=== PATIENT | female | born 1935 | race Caucasian/White ===

== ENCOUNTER → 2017-12-22 15:30 | Outpatient (CLI) | payer MEDICARE, SELFPAY ==
--- NOTE | 2017-12-22 | LES_PTH ---
PATIENT: SHERI FIERRO LOC: POL[facility] U#:[id number] AGE/SX: 89/F ROOM: RE12/22/[address]: Dr. Maikel De La Cruz MD : [id number] BED: DIS: SPEC #: [id number] RECD: 12/23/17 13:24 STATUS: KIMMY LAI #: [id number] GABBY: 12/22/17 00:[address]: Maikel De La Cruz Chi DEPT: SURGICAL PATHOLOGY RECD BY: Nikita Garcia Tissues: A - Skin of hand and finger, NOS B - Skin of hand and finger, NOS Procedures: Surgery Specimen Level IV HEADER OPERATION: Left hand skin biopsy PRE-OP DIAGNOSIS: Left hand lesion TISSUE SUBMITTED: A - Left hand left side, B - Left hand right side MICROSCOPIC DIAGNOSIS A. Skin lesion, left hand, left side, shave biopsy: Inflamed atypical squamous epithelial lesion with moderate to severe atypia. See comment. B. Skin lesion, left hand, right side, shave biopsy: Actinic keratosis, hypertrophic type with verrucous features. Negative for malignancy. SJ:marylu 12/24/17 COMMENT A. The lesion is present at the deep resection margin of the specimen. Invasive carcinoma cannot be entirely ruled out. Clinical correlation and appropriate follow up are necessary, excision of the lesion is suggested if clinically indicated. Case has been reviewed in consultation with Dr. Yenug who concurs with the above diagnosis. IDC:AM MICROSCOPIC DESCRIPTION Slides are reviewed. GROSS DESCRIPTION A - Received in fixative is one container labeled with the patient's name and designated left hand left side. The specimen consists of a round piece of chand-white skin measuring 0.6 x 0.6 x 0.2 cm. The specimen is inked and submitted entirely in one cassette. It will be serially sectioned at the time of embedding. B - Received in fixative is one container labeled with the patient's name and designated left hand right side. The specimen consists of a piece of chand-white skin measuring 0.5 x 0.5 x 0.2 cm. A chand nodule is noted on the surface measuring 0.4 cm in greatest dimension. The specimen is inked and submitted entirely in one cassette. It will be bisected at the time of embedding. / ASUNCION:marylu 12/23/17 TC:5 CPT: 42795 x2
== END ==
PROVIDERS: Family Provider Family Medicine Geriatric Medicine; PCP Family Medicine Geriatric Medicine; Visit Provider Family Medicine Geriatric Medicine
DX: L98.9 Disorder of the skin and subcutaneous tissue, unspecified (principal)
CPT/HCPCS: 87070; 87205; 88305

== ENCOUNTER → 2018-06-03 14:50 | Outpatient (CLI) | payer MEDICARE, SELFPAY ==
[2016-06-10 06:25] VITALS: BMI 32.2
== END ==
PROVIDERS: Family Provider Family Medicine Geriatric Medicine; PCP Family Medicine Geriatric Medicine; Referring Provider Family Medicine Geriatric Medicine; Visit Provider Family Medicine Geriatric Medicine
DX: R68.83 Chills (without fever) (principal)
CPT/HCPCS: 87633

== ENCOUNTER → 2018-06-08 12:13 | Outpatient (CLI) | payer MEDICARE, SELFPAY ==
--- NOTE | 2018-06-08 12:15 | CT_ITS ---
STUDY: CT CHEST WITHOUT CONTRAST REASON FOR EXAM: Female, 83 years old. History of a lung nodule. RADIATION DOSAGE (If Supplied By Facility): CTDIvol = ( 13.20 ) mGy, DLP = ( 484.97 ) mGycm TECHNIQUE: Transaxial imaging was performed without the administration of intravenous contrast material. Multiplanar coronal and sagittal images were reformatted. Individualized dose optimization techniques were used for this CT. COMPARISON: None. FINDINGS: There is a 1.7 cm x 1 cm hypodense nodule in the lower midportion of the right lobe of the thyroid. A inhomogeneous hypodense nodule is also seen in the inferior aspect of the left lobe of the thyroid. This extends into the substernal region. Correlation with ultrasound of the thyroid gland is recommended for further evaluation. Minimal increased markings in the posterior medial segment of the right lower lobe with areas of bone bronchiectasis. This is in keeping with scarring. No pulmonary nodule is seen. There is no demonstrated pleural abnormality. Normal heart and pericardium. There are multiple small lymph nodes within the mediastinum, which are normal in size and morphology most compatible with reactive lymph hyperplasia. Normal hilar regions. Normal unenhanced pulmonary arteries. There is atherosclerotic calcification of the aortic arch . There are multi-level degenerative changes of the thoracic spine. Small hiatal hernia. CT/Chest WITH Contrast IMPRESSION: Findings suggestive of mild degree of scarring and bronchiectasis in the posterior medial segment of the right lower lobe. No pulmonary nodule is seen. Electronically Signed: Matthew Jolly, at 12:54 EDT , Service support ,
[2018-06-08 12:41] LABS: CREATININE FINGERSTICK 1.3 mg/dL (0.55-1.02)
== END ==
PROVIDERS: Family Provider Family Medicine Geriatric Medicine; PCP Family Medicine Geriatric Medicine; Referring Provider Family Medicine Geriatric Medicine; Visit Provider Family Medicine Geriatric Medicine
DX: R91.1 Solitary pulmonary nodule (principal)
CPT/HCPCS: 71260

== ENCOUNTER 2021-04-15 17:16 | Observation (INO) | payer MEDICARE, SELFPAY ==
[2021-04-15] VITALS (16 sets, daily range): BP systolic 119–149; BP diastolic 74–118; PULSE 81–152; RESP 16–24; TEMP 36.2–37.9; O2SAT 91–100; BMI 30.3; BMI 30.4
--- NOTE | 2021-04-15 17:20 | EKG12_ITS ---
Test Reason : REPEAT CP Blood Pressure : / mmHG Vent. Rate : 102 BPM Atrial Rate : 105 BPM P-R Int : 000 ms QRS Dur : 080 ms QT Int : 300 ms P-R-T Axes : 000 007 017 degrees QTc Int : 391 ms Atrial fibrillation Low voltage QRS Nonspecific ST and T wave abnormality Abnormal ECG Confirmed by RAZA SALAZAR, JIMMY ([id number]), publication editor DOMINICK QUIÑONES ([id number]) on 04/17/2021 11:44:44 AM Referred By: VARUN Confirmed By:JIMMY PERSON MD
--- NOTE | 2021-04-15 17:37 | RAD_ITS ---
STUDY: X-RAY CHEST REASON FOR EXAM: Female, 85 years old. SOB, NEW ONSET A-FIB TWO WEEKS AGO. chest pain TECHNIQUE: XR Chest 1 View COMPARISON: Prior comparison studies are not available for review at this time. FINDINGS: There is no demonstrated pleural abnormality. Normal size heart. Normal mediastinum and kathy. Normal visualized pulmonary arteries. There is atherosclerotic calcification of the aortic arch with tortuosity. There are diffuse degenerative changes of the visualized thoracic spine. There is degenerative osteoarthritis of the bilateral shoulders. There is no demonstrated abnormality of the visualized soft tissue structures of the upper abdomen. RAD/Chest 1 View (Portable) IMPRESSION: There has been no change in the appearance of the chest since the prior study. Electronically Signed: Eugene Pacheco MD at 18:03 [facility] ,
--- NOTE | 2021-04-15 17:37 | ED.VIS.CHEST ---
HPI History of Present Illness Chief Complaint: Chest Pain Informant: patient Onset/Context/Timing Onset: Yesterday Timing: Continuous Quality: Positive for Pressure and Tightness Location: Substernal Current Severity: Mild Maximum Severity: Moderate Narrative Narrative: Patient presents secondary to chest pressure that started yesterday. Patient describes a pressure-like sensation that waxes and wanes. She has occasional shortness of breath. She was diagnosed approximately 2 weeks ago with atrial fibrillation. She was placed on Eliquis and metoprolol. She was also started on thyroid medication for hyperthyroidism at that time. She believes her last stress test was several years ago. [facility] Medical History Atrial fibrillation Hyperthyroidism Home Medications amlodipine 5 mg PO DAILY 05/13/16 [History Last Taken 06/10/16 05:00] losartan 50 mg PO DAILY 05/13/16 [History Last Taken 06/10/16 05:00] Allergy/AdvReac Type Severity Reaction Status Date / Time celecoxib [From Celebrex] Allergy Rash Verified 05/13/16 14:11 piroxicam [From Feldene] Allergy Swelling Verified 05/13/16 14:11 Sulfa (Sulfonamide Allergy Rash Verified 05/13/16 14:11 Antibiotics) Social History Smoking Status: Never smoker ROS ROS ED Constitutional Constitutional ED: Denies chills or fever(s) Eyes Eyes: Denies change in vision ENT ENT ED: Denies sore throat Cardiovascular Cardiovascular: Reports chest pain Respiratory/Chest Respiratory/Chest: Reports cough and dyspnea Gastrointestinal Gastrointestinal: Denies abdominal pain, diarrhea, nausea or vomiting Genitourinary Genitourinary ED: Denies dysuria Musculoskeletal Musculoskeletal: Denies back pain or neck pain Integumentary Denies rash Neurologic Neurologic: Denies headache(s) or weakness Allergic/Immunologic Allergic/Immunologic ED: Denies urticaria EXAM Physical Exam Const Vital Signs: 04/15/21 17:18 04/15/21 17:21 04/15/21 17:30 Temperature 97.1 F L 97.1 F L Temperature Source Temporal Temporal Pulse Rate 141 H 152 H Respiratory Rate 18 22 H Respiratory Effort Normal Non-Labored Blood Pressure 139/115 H 139/115 H Blood Pressure Mean 123 123 Pulse Ox 97 98 Oxygen Delivery Method Room Air Room Air Room Air 04/15/21 18:28 Temperature Temperature Source Pulse Rate 128 H Respiratory Rate 18 Respiratory Effort Blood Pressure 130/105 H Blood Pressure Mean 113 Pulse Ox 98 Oxygen Delivery Method Room Air Positive well nourished and well developed General Appearance ED: well developed HEENT normocephalic and atraumatic Eyes PERRL and EOMs intact bilaterally Neck supple Chest Wall inspection of chest normal and palpation of chest normal Resp normal respiratory effort and clear to auscultation bilaterally Cardio Rate: tachycardic Rhythm: abnormal rhythm irregularly irregular GI soft to palpation and non-tender Extremity normal to inspection Neuro oriented x3 Sensorium / Orientation: awake and alert Psych mental status grossly normal Skin no rashes or lesions noted MDM MDM MDM Narrative Medical decision making narrative: EKG, chest x-ray, lab work obtained. Patient ordered 10 mg of IV Cardizem. Lab Data Attestation: I reviewed the patient's lab results. Labs: Laboratory Results - last 24 hr 04/15/21 04/15/21 04/15/21 17:32 17:32 17:32 WBC 8.3 RBC 3.95 L Hgb 13.1 Hct 37.7 MCV 95.4 MCH 33.2 H MCHC 34.7 RDW Std Deviation 47.5 H RDW Coeff of Sari 13.5 Plt Count 141 L MPV 10.4 Immature Gran % (Auto) 4.800 H Neut % (Auto) 70.5 H Lymph % (Auto) 14.2 L Glasscock % (Auto) 10.2 H Eos % (Auto) 0.2 Baso % (Auto) 0.1 Absolute Neuts (auto) 5.8 Absolute Lymphs (auto) 1.17 Nucleated RBC % 0 PT 17.5 H INR 1.5 Sodium 141 Potassium 3.7 Chloride 109 H Carbon Dioxide 27.0 Anion Gap 5 BUN 20 H Creatinine 1.01 Estim Creat Clear Calc 35.17 Est GFR (MDRD) Af Amer 67 Est GFR (MDRD) Non-Af 55 L BUN/Creatinine Ratio 19.8 Glucose 110 H Calcium 8.4 L Troponin I High Sens 5 TSH 04/15/21 17:32 WBC RBC Hgb Hct MCV MCH MCHC RDW Std Deviation RDW Coeff of Sari Plt Count MPV Immature Gran % (Auto) Neut % (Auto) Lymph % (Auto) Glasscock % (Auto) Eos % (Auto) Baso % (Auto) Absolute Neuts (auto) Absolute Lymphs (auto) Nucleated RBC % PT INR Sodium Potassium Chloride Carbon Dioxide Anion Gap BUN Creatinine Estim Creat Clear Calc Est GFR (MDRD) Af Amer Est GFR (MDRD) Non-Af BUN/Creatinine Ratio Glucose Calcium Troponin I High Sens TSH 0.40 Radiography Chest X-Ray - ED: 1 View, Read by ED Physician and Chronic Changes Diagnostic Testing: Clinical Impression(s) from Imaging Studies Chest X-Ray 04/15/21 17:37 IMPRESSION: There has been no change in the appearance of the chest since the prior study. Electronically Signed: Eugene Pacheco MD at 18:03 EST , EKG Initial EKG: Attestation: I personally reviewed and interpreted this EKG as follows: Interpretation: Atrial Fibrillation (A. fib at 145. Nonspecific T wave flattening. No acute ST change.) Follow-up EKG: Attestation: I personally reviewed and interpreted this EKG as follows: Interpretation: Atrial Fibrillation (A. fib at 102. No acute ST change noted) Treatment and Re-Evaluation Comments:: Test results discussed with patient. At this time lab work largely unremarkable with a normal troponin of 5. TSH is normal. Patient did develop some nausea and was given a dose of Zofran. Due to repeated chest pressure repeat EKG was obtained and shows no ischemia. Patient be discussed with hospitalist regarding admission for definitive rate control and cardiac rule out. Discharge Plan Triage Chief Complaint: Chest Pain ED Provider: Jenny Gonsalves Dx/Rx/DC Orders Clinical Impression: Chest pain, Atrial fibrillation with rapid ventricular response Prescriptions: No Action losartan 50 MG tablet 50 mg PO DAILY RF: 0 amlodipine 5 MG tablet 5 mg PO DAILY RF: 0 Primary Care Provider: Igor Dominguez Referrals: Igor Dominguez DO [Primary Care Provider] - Disposition Disposition: Acute Care Hospital [facility]
[2021-04-15 17:46] LABS: Absolute Lymphocyte Count 1.17 X10^3/uL (0.83-4.51); Absolute Neutrophil Count 5.8 X10^3/uL (2.0-7.7); Basophil# 0.01 X10^3/uL; Basophil% 0.1 % (0-1); Eosinophil# 0.02 X10^3/uL; Eosinophils% 0.2 % (0-5); Hematocrit 37.7 % (37-47); Hemoglobin 13.1 g/dL (12.0-15.0); Lymphocyte # 1.17 X10^3/ul (0.83-4.51); Lymphocyte % 14.2 % (19-41); Mean Corp Hgb Conc 34.7 g/dL (32-36); Mean Corpuscular Hgb 33.2 pg (27.0-32.0); Mean Corpuscular Volume 95.4 fL (81-99); Mean Platelet Vol. 10.4 fl (6.2-12.0); Monocyte# 0.84 X10^3/uL; Monocyte% 10.2 % (0-10); NRBC Flagged by Analyzer 0 % (0-5); Neutrophil # 5.82 X10^3/uL (2.7-7.7); Neutrophil % 70.5 % (47-70); Platelet Count 141 K/mm3 (150-450); RBC Distribution Width CV 13.5 % (11.6-14.6); RBC Distribution Width SD 47.5 fl (35.1-43.9); Red Blood Count 3.95 M/mm3 (4.2-5.4); White Blood Count 8.3 K/mm3 (4.4-11.0)
[2021-04-15 17:58] LABS: Anion Gap 5 (5-15); BUN 20 mg/dL (7-18); BUN/Creat Ratio 19.8 RATIO (10-20); Calcium,Total 8.4 mg/dL (8.5-10.1); Chloride 109 mmol/L (98-107); Creatinine, Serum 1.01 mg/dL (0.55-1.02); EST Glomerular Filtration Rate 55 mL/min (>60); Est Glom Filt Rate - Afr Amer 67 mL/min (>60); Estimated Creatinine Clearance 35.17 ml/min; Glucose 110 mg/dL (74-106); Potassium 3.7 mmol/L (3.5-5.1); Sodium Level 141 mmol/L (136-145); Troponin-I HS 5 pg/mL (3.0-54.0)
[2021-04-15 18:17] LABS: International Normalized Ratio 1.5; Prothrombin Time (Protime)PT. 17.5 SECONDS (11.7-14.9)
[2021-04-15] MEDS: 0.9% Normal Saline 1,000 ML 150 ML IV (18:33)
[2021-04-15] MEDS: dilTIAZem 25 MG/5 ML Vial 10 MG IV BOLUS (18:33)
--- NOTE | 2021-04-15 18:47 | EKG12_ITS ---
Test Reason : CP Blood Pressure : / mmHG Vent. Rate : 145 BPM Atrial Rate : 141 BPM P-R Int : 000 ms QRS Dur : 076 ms QT Int : 316 ms P-R-T Axes : 000 -10 -56 degrees QTc Int : 490 ms Atrial fibrillation Low voltage QRS Nonspecific ST and T wave abnormality Abnormal ECG Confirmed by RAZA SALAZAR, JIMMY ([id number]), design editor DOMINICK QUIÑONES ([id number]) on 04/17/2021 11:44:59 AM Referred By: Confirmed By:JIMMY PERSON MD
[2021-04-15] MEDS: Ondansetron 4 MG/2 ML Vial IV (18:58)
[2021-04-15] MEDS: Aspirin 81 MG TAB.CHEW 324 MG PO (19:18)
[2021-04-15 20:26] LABS: Troponin-I HS 6 pg/mL (3.0-54.0)
--- NOTE | 2021-04-15 21:00 | EKG12_ITS ---
Test Reason : CP ADMIT Blood Pressure : / mmHG Vent. Rate : 103 BPM Atrial Rate : 113 BPM P-R Int : 000 ms QRS Dur : 078 ms QT Int : 264 ms P-R-T Axes : 000 -02 258 degrees QTc Int : 345 ms Atrial fibrillation Low voltage QRS Nonspecific ST and T wave abnormality Abnormal ECG Confirmed by RAZA SALAZAR, JIMMY ([id number]), video tape editor DOMINICK QUIÑONES ([id number]) on 04/17/2021 12:45:17 PM Referred By: MELISA Confirmed By:JIMMY PERSON MD
--- NOTE | 2021-04-15 21:14 | PCM.HP.STD ---
[facility] - General General Date of Admission: 04/15/21 Date of Service: 04/15/21 Chief Complaint: Chest pressure since yesterday night, on 04/14/2021. Recent diagnosis of A. fib 2 weeks ago HPI Narrative SHERI FIERRO, is a 85 F with history of recent diagnosis of A. fib 2 weeks ago, diagnosed by PCP and started on metoprolol and apixaban 5 mg twice daily came to ED when she started having chest pain last night on 04/14. She further described she had left-sided chest pressure felt like elephant sitting on the chest, about 4-6/10 intensity with radiation to intrascapular space. Patient did not feel well last night and could not sleep. She further went for exercise when she had not gone for last 3 weeks but usually had had 3 times a week. Her chest pain further got worse during the day that made her to come to ED. She denies palpitation, pounding sensation in the chest. She has occasional shortness of breath during the chest pain. She also felt dizzy and lightheaded but denies syncope. She had a stress test done several years ago. She noted an echo. She does not have diagnosis of coronary artery disease, heart failure or valvular disease. She has never smoked does not have COPD/emphysema. She has history of hypothyroidism and is on methimazole. In ED, first EKG shows A. fib 140 bpm, QTC 490 ms. She had 10 mg of IV Cardizem bolus which slowed her heart rate 202/min on repeat EKG. Labs reviewed. TSH 0.4. First isolated troponin normal. K3.7. Chest x-ray individually reviewed does not show any new acute change. PFSH Medical History Atrial fibrillation Cancer GERD (gastroesophageal reflux disease) Hypertension Hyperthyroidism Non-smoker Home Medications losartan 50 mg PO DAILY 05/13/16 [History Last Taken 06/10/16 05:00] apixaban [Eliquis] 5 mg PO BID 04/15/21 [History Last Taken Unknown] methimazole 10 mg PO DAILY 04/15/21 [History Last Taken Unknown] metoprolol tartrate 25 mg PO BID 04/15/21 [History Last Taken Unknown] Allergy/AdvReac Type Severity Reaction Status Date / Time celecoxib [From Celebrex] Allergy Rash Verified 05/13/16 14:11 piroxicam [From Feldene] Allergy Swelling Verified 05/13/16 14:11 Sulfa (Sulfonamide Allergy Rash Verified 05/13/16 14:11 Antibiotics) Surgical History (Updated 04/15/21 @ 19:56 by Lara Whitmna) History of appendectomy Social History Smoking Status: Never smoker ROS ROS Narrative Constitutional: Reports fatigue and weakness. Mild low-grade fever 100.2 Fahrenheit in ED. HEENT: Reports systems reviewed and no addt'l complaints, except as documented Respiratory/Chest: As mentioned in HPI Gastrointestinal: Denies coffee ground emesis, hematemesis or vomiting Genitourinary: Denies burning urination or new urinary tract symptoms Musculoskeletal: Denies joint pain and limited range of motion Neurologic: Denies seizure-like activity skin: No ulcer. No rash Endocrinology: Reports systems reviewed and no addt'l complaints, except as documented Hematologic/Lymphatic: Reports systems reviewed and no addt'l complaints, except as documented Rest 14 ROS are negative except as mentioned in HPI Vital Signs Vital Signs Vital Signs: 04/15/21 17:18 04/15/21 17:21 04/15/21 17:30 Temperature 97.1 F L 97.1 F L Temperature Source Temporal Temporal Pulse Rate 141 H 152 H Respiratory Rate 18 22 H Respiratory Effort Normal Non-Labored Blood Pressure 139/115 H 139/115 H Blood Pressure Mean 123 123 Blood Pressure Source Blood Pressure Position Blood Pressure Location Pulse Ox 97 98 Oxygen Delivery Method Room Air Room Air Room Air 04/15/21 18:28 04/15/21 19:00 04/15/21 20:40 Temperature 97.9 F Temperature Source Temporal Pulse Rate 128 H 96 108 H Respiratory Rate 18 18 21 H Respiratory Effort Blood Pressure 130/105 H 139/103 H 127/88 H Blood Pressure Mean 113 115 101 Blood Pressure Source Blood Pressure Position Blood Pressure Location Pulse Ox 98 96 97 Oxygen Delivery Method Room Air Room Air Room Air 04/15/21 20:53 Temperature 100.2 F H Temperature Source Oral Pulse Rate 139 H Respiratory Rate 16 Respiratory Effort Blood Pressure 147/118 H Blood Pressure Mean 127 Blood Pressure Source Monitor Blood Pressure Position Supine Blood Pressure Location Right Arm Pulse Ox 95 Oxygen Delivery Method Room Air Weight Weight: 177 lb 0.499 oz Body Mass Index (BMI) 30.4 Physical Exam Narrative General: Alert, Oriented x3, Cooperative HEENT: Atraumatic, PERRLA, EOMI, Normocephalic Oral: Oral mucosa moist. No Gingival or Mucosal Lesions/ Ulcerations Neck: Supple, No JVD, Negative Carotid Bruits Lungs: Air entry diminished in bilateral lung bases. No crepitation/rhonchi Cardiovascular: Irregular rate and rhythm, A. fib RVR. Normal S1, Normal S2, No murmurs Abdomen: Bowel Sounds Present, Soft, Non Tender, Non-Distended : No renal angle tenderness. No suprapubic tenderness. Extremities: Mild bilateral pitting ankle edema, Capillary Refill Less than 3 Seconds Skin: No rashes, No breakdown Musculoskeletal: No Tenderness to Palpation of Joints or Extremities. ROM full. Neurological: Cranial nerves II-XII grossly intact, DTR 2+/4 and Symmetrical, Neuro grossly intact Psych/Mental Status: Normal Affect, Appropriate. Results Lab / Micro Data Result Diagrams: 04/15/21 17:32 04/15/21 17:32 Labs: Laboratory Results - last 24 hr 04/15/21 17:32: WBC 8.3, RBC 3.95 L, Hgb 13.1, Hct 37.7, MCV 95.4, MCH 33.2 H, MCHC 34.7, RDW Std Deviation 47.5 H, RDW Coeff of Sari 13.5, Plt Count 141 L, MPV 10.4, Immature Gran % (Auto) 4.800 H, Neut % (Auto) 70.5 H, Lymph % (Auto) 14.2 L, Guadalupe % (Auto) 10.2 H, Eos % (Auto) 0.2, Baso % (Auto) 0.1, Absolute Neuts (auto) 5.8, Absolute Lymphs (auto) 1.17, Nucleated RBC % 0 04/15/21 17:32: PT 17.5 H, INR 1.5 04/15/21 17:32: Sodium 141, Potassium 3.7, Chloride 109 H, Carbon Dioxide 27.0, Anion Gap 5, BUN 20 H, Creatinine 1.01, Estim Creat Clear Calc 35.17, Est GFR (MDRD) Af Amer 67, Est GFR (MDRD) Non-Af 55 L, BUN/Creatinine Ratio 19.8, Glucose 110 H, Calcium 8.4 L, Troponin I High Sens 5 04/15/21 17:32: TSH 0.40 04/15/21 19:30: Troponin I High Sens 6 Micro: Microbiology 04/15/21 17:29 Nasal Secretion SARS-CoV-2 Antigen (Rapid) - Final Radiology Impression Chest X-Ray 04/15/21 17:37 IMPRESSION: There has been no change in the appearance of the chest since the prior study. Electronically Signed: Eugene Pacheco MD at 18:03 EST , Assessment & Plan Assessment/Plan (1) Atrial fibrillation with rapid ventricular response: (2) Chest pain: PLAN: 1. A. fib with RVR possible due to hyperthyroidism, ACS needs to be ruled out: Patient is being admitted in PCU. Patient is still heart rate fluctuates in 110s. Cardizem 15 mg IV bolus and infusion drip 5 mg/h ordered with up titration. Continue metoprolol and apixaban. Discussed with the nursing staff. 2D echo ordered. TSH and free T4 ordered for tomorrow a.m. Patient had outpatient cartography professor appointment on 04/18, Dr. Belcher but wants to follow cartography professor as an outpatient here. 2. Atypical chest pain, rule out ACS: SRAVANTHI risk score is 2. Low risk. Serial troponin enzymes. First-troponin negative. Patient cannot have stress test now because of A. fib with RVR which is already a stressor for chest pain. Patient can have nuclear myocardial perfusion stress test as an outpatient. If serial troponin shows upward trend, consult cardiology for possible cardiac cath. Fasting profile tomorrow a.m. We will try to manage the risk factors hypertension hypothyroidism. 3. Hypertension: Patient on losartan as an outpatient discontinued with holding parameter. Blood pressure is slightly elevated. 4. Hyperthyroidism: Patient home dose of methimazole continued. TSH and free T4 tomorrow a.m. VT prophylaxis: Patient already on apixaban. Living will/advanced directive/end of life care: Patient does have living will or advanced directive. His daughter and son are power of trust and estates attorney for health but she prefers daughter to be the first person to contact. After discussion of benefits/risks procedures involved with full code, DNR CC arrest and DNR CC, the patient opted for full code. If patient found a reversible cause or terminal 1 does not improve in few days, would like to withdraw the life support measures. Patient initially does want artificial life support including intubation, tube feed, ventilator and/chest compression, central venous catheter, vasopressor and DC shock if needed Total time spent in [id number] encounter in discussion of advanced directive 16 minutes. Charges/Coding Visit Charges OBSV E&M: 83301 Initial observation care L3 Procedures Hospitalists Procedures: [id number] Advncd Care Plan 30 Min
[2021-04-15] MEDS: dilTIAZem 25 MG/5 ML Vial 15 MG IV BOLUS (21:57)
[2021-04-15] MEDS: Metoprolol Tartrate 25 MG Tablet PO (22:05)
[2021-04-15] MEDS: APIXABAN 5 MG TABLET PO (22:05)
[2021-04-16] VITALS (17 sets, daily range): BP systolic 97–114; BP diastolic 53–86; PULSE 62–101; RESP 15–21; TEMP 36.1–37.2; O2SAT 94–98
[2021-04-16 00:43] LABS: Troponin-I HS 6 pg/mL (3.0-54.0)
--- NOTE | 2021-04-16 05:55 | ECHOD_ITS ---
Reason For Study: AFIB Procedure This was a 2D Doppler, Color Flow transthoracic echocardiogram. The exam was of adequate technical quality. Exam performed portable in patient room. Left Ventricle Normal LV size. Left ventricular systolic function is normal. The estimated ejection fraction is 60 %. Unable to assess diastolic dysfunction. No regional wall motion abnormalities noted. Right Ventricle Normal RV size. Normal systolic function. Atria The left atrium is severely enlarged. The right atrium is severely enlarged. No doppler evidence for ASD. Mitral Valve There is mild mitral annular calcification. Mild diffuse mitral valve thickening. Mild-Moderate (1- 2+) mitral valve insufficiency. Tricuspid Valve Normal tricuspid valve. Moderately severe (3+) eccentric tricuspid valve insufficiency. Right ventricular systolic pressure estimated to be 35 mmHg. Aortic Valve Trisinus/trileaflet aortic valve. Mild diffuse aortic valve thickening. Mild focal aortic valve calcification. Pulmonic Valve The pulmonic valve is not well visualized. Great Vessels Mildly dilated aortic root. Pericardium/Pleural No pericardial effusion. MMode/2D Measurements & Calculations LVIDd: 4.6 cm IVSd: 1.1 cm Ao root diam: 4.2 cm LVIDs: 3.3 cm LVPWd: 0.95 cm RVDd: 3.0 cm FS: 27.6 % LAV(MOD-bp): 71.7 ml LA A4 area: 23.9 cm2 LA dimension(2D): 3.6 cm LAV(MOD-bp) Indexed: 38.6 ml/m2 LAV(MOD-sp2): 76.3 ml LAV(MOD-sp4): 66.8 ml RA A4 area: 25.1 cm2 Doppler Measurements & Calculations MV E max jori: 100.8 cm/sec Ao V2 max: 111.7 cm/sec LV V1 max: 80.6 cm/sec Ao max P.0 mmHg LV V1 max P.6 mmHg PA V2 max: 72.0 cm/sec TR max jori: 220.6 cm/sec TR max P.5 mmHg ECHO/Echo Complete Interpretation Summary Left ventricular systolic function is normal. The estimated ejection fraction is 60 %. The left atrium is severely enlarged. The right atrium is severely enlarged. There is mild mitral annular calcification. Mild diffuse mitral valve thickening. Mild-Moderate (1-2+) mitral valve insufficiency. Moderately severe (3+) eccentric tricuspid valve insufficiency. Mild diffuse aortic valve thickening. Mild focal aortic valve calcification. Mildly dilated aortic root. Right ventricular systolic pressure estimated to be 35 mmHg. Unable to assess diastolic dysfunction. Ordering Physician: Javid Torres Referring Physician: HEMA DICKERSON Performed By: Amber Smyth, RDCS, RVT
[2021-04-16 06:19] LABS: Absolute Lymphocyte Count 1.51 X10^3/uL (0.83-4.51); Absolute Neutrophil Count 3.4 X10^3/uL (2.0-7.7); Basophil# 0.01 X10^3/uL; Basophil% 0.2 % (0-1); Eosinophil# 0.07 X10^3/uL; Eosinophils% 1.1 % (0-5); Hematocrit 34.8 % (37-47); Hemoglobin 11.8 g/dL (12.0-15.0); Lymphocyte # 1.51 X10^3/ul (0.83-4.51); Mean Corp Hgb Conc 33.9 g/dL (32-36); Mean Corpuscular Hgb 33.2 pg (27.0-32.0); Mean Platelet Vol. 10.5 fl (6.2-12.0); Monocyte# 1.25 X10^3/uL; Monocyte% 19.9 % (0-10); NRBC Flagged by Analyzer 0 % (0-5); Neutrophil # 3.36 X10^3/uL (2.7-7.7); Neutrophil % 53.4 % (47-70); Platelet Count 117 K/mm3 (150-450); RBC Distribution Width CV 13.5 % (11.6-14.6); RBC Distribution Width SD 49.1 fl (35.1-43.9); Red Blood Count 3.55 M/mm3 (4.2-5.4); White Blood Count 6.3 K/mm3 (4.4-11.0)
[2021-04-16 07:16] LABS: Anion Gap 7 (5-15); BUN 18 mg/dL (7-18); BUN/Creat Ratio 21.2 RATIO (10-20); Calcium,Total 7.4 mg/dL (8.5-10.1); Chloride 108 mmol/L (98-107); Cholesterol 128 mg/dL (200); Creatinine, Serum 0.85 mg/dL (0.55-1.02); EST Glomerular Filtration Rate 67 mL/min (>60); Est Glom Filt Rate - Afr Amer 82 mL/min (>60); Estimated Creatinine Clearance 41.78 ml/min; Glucose 89 mg/dL (74-106); High Density Lipoprotein 62 mg/dL; Potassium 3.1 mmol/L (3.5-5.1); Sodium Level 140 mmol/L (136-145); T4 Free Direct 0.96 ng/dL (0.76-1.46); Thyroid Stim Hormone (TSH) 0.46 uIU/mL (0.358-3.74); Triglycerides 74 mg/dL; Very Low Density Lipoprotein 15 mg/dL (5-40)
[2021-04-16] MEDS: Metoprolol Tartrate 50 MG Tablet PO (08:14)
[2021-04-16] MEDS: APIXABAN 5 MG TABLET PO (08:16)
[2021-04-16] MEDS: Potassium Chloride Oral Tablet 20 MEQ 40 MEQ PO (08:38)
[2021-04-16] MEDS: METHIMAZOLE 5 MG TABLET 10 MG PO (09:29)
[2021-04-16 11:26] LABS: Magnesium 2.2 mg/dL (1.6-2.6)
[2021-04-16] MEDS: Ondansetron 4 MG/2 ML Vial IV (11:28)
[2021-04-16] MEDS: 0.9% Saline Lock 10 ML Syringe IV (11:28)
--- NOTE | 2021-04-16 12:28 | PCM.DC ---
Discharge Instructions Diet Discharge Diet: Low fat / Low cholesterol Activity Discharge Activity: Return to Normal Activity Dressing / Incision Call your doctor if you observe: Shortness of breath, Dizziness, Chest pain and Increased palpitations (irregular heartbeat) Follow Up Care Test Results: Test results from this visit will be discussed in further detail at your follow-up appointment, if applicable. Discharge Plan Admission Admit Date/Time: 04/15/21 19:19 Primary Reason for Your Visit: Chest pain, atrial fibrillation Attending Provider: Mio Watson Primary Care Provider: Igor Dominguez Discharge Orders/Prescriptions Prescriptions: New metoprolol tartrate 50 mg Tablet 50 mg PO BID 30 Days Qty: 60 RF: 0 pantoprazole [Protonix] 40 mg tablet,delayed release (DR/EC) 40 mg PO DAILY Qty: 30 RF: 0 fluticasone propionate [Flonase Allergy Relief] 50 mcg/actuation spray,suspension 2 spray intranasal QHS Qty: 16 RF: 0 Continued losartan 50 MG tablet 50 mg PO DAILY RF: 0 methimazole 10 mg tablet 10 mg PO DAILY RF: 0 Eliquis 5 mg tablet 5 mg PO BID RF: 0 Discontinued metoprolol tartrate 25 mg tablet 25 mg PO BID RF: 0 Referrals / Follow Up: Ye, Cardiology [Other] - See Referral Note (As scheduled 04/18/21) Igor Dominguez DO [Primary Care Provider] - In 1 Week Disposition Disposition (needs filled in before D/C Order can be placed): Home, Self Care
--- NOTE | 2021-04-16 14:04 | DS.PCM_ITS ---
Documented by User: Colleen Medel NP, SYSTEM CONSULTANT-C 04/16/21 14:14 Providers Date of Admission: 04/15/21 Date of Discharge: 04/16/21 Primary Care Physician: Dr. Igor Dominguez DO Reason For Visit: CHEST PAIN Diagnosis Discharge Diagnosis (1) Atrial fibrillation with rapid ventricular response: Status: Acute Code(s): I48.91 - Unspecified atrial fibrillation (2) Chest pain: Status: Acute Code(s): R07.9 - Chest pain, unspecified Medications at Discharge Home Medications losartan 50 mg PO DAILY 05/13/16 Eliquis 5 mg PO BID 04/15/21 methimazole 10 mg PO DAILY 04/15/21 fluticasone propionate [Flonase Allergy Relief] 2 spray INTRANASAL QHS #16 g 04/16/21 metoprolol tartrate 50 mg PO BID 30 Days #60 tab 04/16/21 pantoprazole [Protonix] 40 mg PO DAILY #30 tab 04/16/21 Hospital Course Operations None Procedures 2-D Echocardiogram Summary of Care Provided Hospital Course: Patient is an 85-year-old female admitted 04/15/2021 due to atri al fibrillation with RVR. 1. Atrial fibrillation with RVR-recently diagnosed. Initially placed on Cardizem drip. On Eliquis, metoprolol increased to 50 mg twice daily. Troponin negative. Echocardiogram pending and will be reviewed prior to discharge. TSH, mag normal. 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 Ryan, 04/19/21. 2. Hypertension-continue losartan, metoprolol. Daughter states patient may have been taken off of losartan when she was started on metoprolol. She has follow- up with cardiology on Thursday, follow cardiology recommendations. 3. Hyperthyroidism-TSH/T4 normal. Continue methimazole. Has follow-up with endocrinology next week. 4. GERD-initiated on PPI. Patient seen and examined prior to discharge. Physical assessment as noted below. Patient is stable for discharge with follow up recommendations as noted above. This patient was seen by Colleen Medel NP-C under the supervision of Dr. Watson. Time spent examining patient, reviewing data and subsequent management of care: 16 Minutes Physical Exam Const alert, oriented x3 and no apparent distress Orientation / Consciousness: awake, oriented to person, oriented to place and oriented to time HEENT normocephalic and moist oral mucous membranes Eyes PERRL, EOMs intact bilaterally and conjunctivae normal Neck no lymphadenopathy Resp normal respiratory effort and clear to auscultation bilaterally Cardio no murmurs Cardio Narrative: Atrial fibrillation, rate controlled Peripheral Pulses: pulses 2+ throughout GI normal to inspection, nondistended, normoactive bowel sounds, non-tender and non-distended Extremity normal to inspection Skin no rashes or lesions noted Lesions: no lesions Rashes: no rashes Trauma: no lacerations or abrasions Neuro CN's II-XII intact bilaterally, no focal motor deficits, no sensory deficits noted and deep tendon reflexes 2+ bilaterally Psych mental status grossly normal and affect normal Weight / BMI Weight Weight: 177 lb 0.499 oz Body Mass Index (BMI) 30.4 ABG / Lab / Microbiology Data Result Diagrams: 04/16/21 05:45 04/16/21 05:45 Laboratory: Laboratory Results - last 24 hr 04/15/21 17:32: WBC 8.3, RBC 3.95 L, Hgb 13.1, Hct 37.7, MCV 95.4, MCH 33.2 H, MCHC 34.7, RDW Std Deviation 47.5 H, RDW Coeff of Sari 13.5, Plt Count 141 L, MPV 10.4, Immature Gran % (Auto) 4.800 H, Neut % (Auto) 70.5 H, Lymph % (Auto) 14.2 L, Moffat % (Auto) 10.2 H, Eos % (Auto) 0.2, Baso % (Auto) 0.1, Absolute Neuts (auto) 5.8, Absolute Lymphs (auto) 1.17, Nucleated RBC % 0 04/15/21 17:32: PT 17.5 H, INR 1.5 04/15/21 17:32: Sodium 141, Potassium 3.7, Chloride 109 H, Carbon Dioxide 27.0, Anion Gap 5, BUN 20 H, Creatinine 1.01, Estim Creat Clear Calc 35.17, Est GFR (MDRD) Af Amer 67, Est GFR (MDRD) Non-Af 55 L, BUN/Creatinine Ratio 19.8, Glucose 110 H, Calcium 8.4 L, Troponin I High Sens 5 04/15/21 17:32: TSH 0.40 04/15/21 17:32: Magnesium 2.2 04/15/21 19:30: Troponin I High Sens 6 04/15/21 19:30: Magnesium Cancelled 04/15/21 23:52: Troponin I High Sens 6 04/16/21 05:45: WBC 6.3, RBC 3.55 L, Hgb 11.8 L, Hct 34.8 L, MCV 98.0, MCH 33.2 H, MCHC 33.9, RDW Std Deviation 49.1 H, RDW Coeff of Sari 13.5, Plt Count 117 L, MPV 10.5, Immature Gran % (Auto) 1.400 H, Neut % (Auto) 53.4, Lymph % (Auto) 24.0, Moffat % (Auto) 19.9 H, Eos % (Auto) 1.1, Baso % (Auto) 0.2, Absolute Neuts (auto) 3.4, Absolute Lymphs (auto) 1.51, Nucleated RBC % 0 04/16/21 05:45: Sodium 140, Potassium 3.1 L, Chloride 108 H, Carbon Dioxide 25.0, Anion Gap 7, BUN 18, Creatinine 0.85, Estim Creat Clear Calc 41.78, Est GFR (MDRD) Af Amer 82, Est GFR (MDRD) Non-Af 67, BUN/Creatinine Ratio 21.2 H, Glucose 89, Calcium 7.4 L, Triglycerides 74, Cholesterol 128, LDL Cholesterol 51, VLDL Cholesterol 15, HDL Cholesterol 62, TSH 0.46, Free T4 0.96 Microbiology: Microbiology 04/15/21 17:29 Nasal Secretion SARS-CoV-2 Antigen (Rapid) - Final Radiography Diagnostic Testing: Radiology Impression Chest X-Ray 04/15/21 17:37 IMPRESSION: There has been no change in the appearance of the chest since the prior study. Electronically Signed: Eugene Pacheco MD at 18:03 EST Reading Location ID and State: [facility] / [place] , Service support , D/C Instructions Discharge Diet: Low fat / Low cholesterol Call your doctor if you observe: Shortness of breath, Dizziness, Chest pain and Increased palpitations (irregular heartbeat) Meaningful Use Info Meaningful Use Diagnoses (Choose all that apply): None applicable Discharge Plan Admission Admit Date/Time: 04/15/21 19:19 Primary Reason for Your Visit: Chest pain, atrial fibrillation Attending Provider: Mio Watson Primary Care Provider: Igor Dominguez Discharge Orders/Prescriptions Prescriptions: New metoprolol tartrate 50 mg Tablet 50 mg PO BID 30 Days Qty: 60 RF: 0 pantoprazole [Protonix] 40 mg tablet,delayed release (DR/EC) 40 mg PO DAILY Qty: 30 RF: 0 fluticasone propionate [Flonase Allergy Relief] 50 mcg/actuation spray,suspension 2 spray intranasal QHS Qty: 16 RF: 0 Continued losartan 50 MG tablet 50 mg PO DAILY RF: 0 methimazole 10 mg tablet 10 mg PO DAILY RF: 0 Eliquis 5 mg tablet 5 mg PO BID RF: 0 Discontinued metoprolol tartrate 25 mg tablet 25 mg PO BID RF: 0 Referrals / Follow Up: Ye, Cardiology [Other] - See Referral Note (As scheduled 04/18/21) Igor Dominguez DO [Primary Care Provider] - In 1 Week Disposition Disposition (needs filled in before D/C Order can be placed): Home, Self Care Documented by User: Dr. Mio Watson MD 04/16/21 16:37 Providers Date of Admission: 04/15/21 Reason For Visit: CHEST PAIN Medications at Discharge Home Medications losartan 50 mg PO DAILY 05/13/16 Eliquis 5 mg PO BID 04/15/21 methimazole 10 mg PO DAILY 04/15/21 fluticasone propionate [Flonase Allergy Relief] 2 spray INTRANASAL QHS #16 g 04/16/21 metoprolol tartrate 50 mg PO BID 30 Days #60 tab 04/16/21 pantoprazole [Protonix] 40 mg PO DAILY #30 tab 04/16/21 ABG / Lab / Microbiology Data Result Diagrams: 04/16/21 05:45 04/16/21 05:45 Discharge Plan Admission Admit Date/Time: 04/15/21 19:19 Primary Reason for Your Visit: Chest pain, atrial fibrillation Attending Provider: Mio Watson Primary Care Provider: Igor Dominguez Discharge Orders/Prescriptions Prescriptions: New metoprolol tartrate 50 mg Tablet 50 mg PO BID 30 Days Qty: 60 RF: 0 pantoprazole [Protonix] 40 mg tablet,delayed release (DR/EC) 40 mg PO DAILY Qty: 30 RF: 0 fluticasone propionate [Flonase Allergy Relief] 50 mcg/actuation spray,suspension 2 spray intranasal QHS Qty: 16 RF: 0 Continued losartan 50 MG tablet 50 mg PO DAILY RF: 0 methimazole 10 mg tablet 10 mg PO DAILY RF: 0 Eliquis 5 mg tablet 5 mg PO BID RF: 0 Discontinued metoprolol tartrate 25 mg tablet 25 mg PO BID RF: 0 Referrals / Follow Up: Ye, Cardiology [Other] - See Referral Note (As scheduled 04/18/21) Igor Dominguez DO [Primary Care Provider] - In 1 Week Disposition Disposition (needs filled in before D/C Order can be placed): Home, Self Care Charges/Coding Addendum Addendum: Dr. Watson: I personally reviewed the chart and examined the patient, and agree with the above findings. 85-year-old female presented to the hospital with chest pain an d A. fib with RVR. This is a recent diagnosis and she was started on Eliquis and metoprolol as an outpatient. She was scheduled to follow-up with cardiology in a few days but presented to the hospital with chest pain. Troponins were completely negative and we are still awaiting the echo however barring any major problems with the echo which I doubt, she will be able to go home today. I did adjust her metoprolol from 25 twice daily to 50 mg twice daily which she has tolerated so far today, her heart rate has been stable and her blood pressures have also been controlled. Her TSH was unremarkable she is on methimazole for hyper thyroidism I do recommend that she follow-up with endocrinology as an outpatient. She will continue with her Lasix and her metoprolol as well. I discussed with her the plan for discharge today she expressed understanding Ershivaman for going home and would like to go home today. Clinical time spent in all aspects of patient care: 20 minutes Visit Charges OBSV E&M: [id number] Observation care discharge
== END 2021-04-16 12:30 | disposition home or self-care (01) ==
LOC: ED 19:01 → PCU 04-16 07:00
PROVIDERS: Admitting Provider Internal Medicine; Emergency Provider Emergency Medicine; PCP Student in an Organized Health Care Education/Training Program; Visit Provider Family Medicine
DX: I48.91 Unspecified atrial fibrillation (principal); I10 Essential (primary) hypertension; Z79.01 Long term (current) use of anticoagulants; E05.90 Thyrotoxicosis, unspecified without thyrotoxic crisis or storm; Z79.899 Other long term (current) drug therapy; K21.9 Gastro-esophageal reflux disease without esophagitis
CPT/HCPCS: 36415; 71045; 80048; 80061; 83735; 84439; 84443; 84484; 85025; 85610; 87426; 93005; 93306; 96361; 96365; 96366; 96375; 96376; 99218; 99251; 99285; A4216; G0378; G0463; J2405

== ENCOUNTER → 2022-07-10 | Outpatient (CLI) | payer MEDICARE, SELFPAY ==
--- NOTE | 2022-07-10 09:38 | RAD_ITS ---
EXAM: XR CHEST, 2 VIEWS CLINICAL INDICATION: LORD, Cough, Pneumonia TECHNIQUE: Frontal and lateral views of the chest. COMPARISON: 04/15/2021 FINDINGS: LUNGS AND PLEURAL SPACES: Unremarkable. No consolidation or edema. No pneumothorax. No effusion. HEART: Unremarkable. Cardiac silhouette not enlarged. MEDIASTINUM: Central airways and mediastinal contour are unremarkable. BONES/JOINTS: Unremarkable. SOFT TISSUES: Unremarkable. RAD/Chest PA and Lateral IMPRESSION: No radiographic evidence of acute cardiopulmonary disease. Electronically Signed: Ki Man MD at 17:28 EDT ,
== END | disposition home or self-care (01) ==
LOC: RAD 09:37
PROVIDERS: Referring Provider Nurse Practitioner Gerontology; Visit Provider Nurse Practitioner Gerontology
DX: R06.00 Dyspnea, unspecified (principal)
CPT/HCPCS: 71046

== ENCOUNTER 2022-11-26 15:41 | Outpatient (RCR) | payer MEDICARE, SELFPAY ==
[2022-11-12 09:55] VITALS: BP 112/52; PULSE 58; RESP 16; TEMP 35.2; BMI 25.7
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
[2022-11-18 09:38] VITALS: BP 119/71; PULSE 66; RESP 16; TEMP 35.9; BMI 25.7
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
[2022-11-26 09:57] VITALS: BP 127/61; PULSE 64; RESP 16; TEMP 35.7; BMI 25.7
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
== END 2022-11-29 23:59 | disposition home or self-care (01) ==
LOC: WC 15:41
PROVIDERS: Visit Provider Nurse Practitioner
DX: S01.01XA Laceration without foreign body of scalp, initial encounter (principal); L97.922 Non-pressure chronic ulcer of unspecified part of left lower leg with fat layer exposed; I11.0 Hypertensive heart disease with heart failure; I50.32 Chronic diastolic (congestive) heart failure; I48.91 Unspecified atrial fibrillation; Z79.2 Long term (current) use of antibiotics; S22.49XA Multiple fractures of ribs, unspecified side, initial encounter for closed fracture; E66.3 Overweight; Z87.891 Personal history of nicotine dependence; Z79.01 Long term (current) use of anticoagulants; K21.9 Gastro-esophageal reflux disease without esophagitis; V89.2XXA Person injured in unspecified motor-vehicle accident, traffic, initial encounter
CPT/HCPCS: 11042; 87070; 87075; 87077; 87186; 87205; 99203; G0463

== ENCOUNTER 2022-12-10 09:45 | Outpatient (RCR) | payer MEDICARE, SELFPAY ==
[2022-11-30 00:27] VITALS: BP 127/61; PULSE 64; RESP 16; TEMP 35.7; BMI 25.7
[2022-12-03 09:48] VITALS: BP 127/77; PULSE 60; TEMP 36.3; BMI 25.7
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
[2022-12-10 09:48] VITALS: BP 134/57; PULSE 59; RESP 16; TEMP 37; BMI 25.7
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
== END 2022-12-16 07:39 | disposition home or self-care (01) ==
LOC: WC 09:45
PROVIDERS: Visit Provider Nurse Practitioner
DX: T81.33XA Disruption of traumatic injury wound repair, initial encounter (principal); S01.90XA Unspecified open wound of unspecified part of head, initial encounter; Z87.891 Personal history of nicotine dependence; V89.2XXA Person injured in unspecified motor-vehicle accident, traffic, initial encounter
CPT/HCPCS: 11042

== ENCOUNTER → 2023-08-04 | Outpatient (CLI) | payer MEDICARE, SELFPAY ==
--- NOTE | 2023-08-04 14:48 | RAD_ITS ---
INDICATION: Amiodarone, increased shortness of breath. EXAMINATION/TECHNIQUE: X-RAY - XR Chest 2 Views COMPARISON: No previous relevant examinations available for comparison.. FINDINGS: LIFE-SUPPORT AND LINES: 1. None HEART AND VESSELS: The cardiac silhouette, pulmonary vasculature have normal appearance. No evidence of congestive failure. LUNGS AND PLEURAL SPACES: Lungs are clear. No focal infiltrate, consolidation or effusions. No evidence of pneumothorax. No pulmonary mass is noted. MEDIASTINUM AND HILAR REGIONS: No masses adenopathy noted. No areas of calcification. Visualized upper airway is normal in position. BONY ELEMENTS: No acute bony changes noted. Mild thoracic spondylosis. No acute fractures or destructive bony process. RAD/Chest PA and Lateral IMPRESSION: 1. No evidence of acute cardiopulmonary process Electronically Signed: Milton Parks MD at 19:07 EDT ,
[2023-08-04 16:29] LABS: Absolute Lymphocyte Count 3.22 X10^3/uL (0.83-4.51); Absolute Neutrophil Count 3.9 X10^3/uL (2.0-7.7); Basophil# 0.01 X10^3/uL; Basophil% 0.1 % (0-1); Eosinophil# 0.01 X10^3/uL; Eosinophils% 0.1 % (0-5); Hemoglobin 12.3 g/dL (12.0-15.0); Lymphocyte # 3.22 X10^3/ul (0.83-4.51); Lymphocyte % 38.5 % (19-41); Mean Corp Hgb Conc 31.5 g/dL (32-36); Mean Corpuscular Hgb 31.5 pg (27.0-32.0); Mean Platelet Vol. 11.7 fl (6.2-12.0); Monocyte# 1.14 X10^3/uL; Monocyte% 13.6 % (0-10); NRBC Flagged by Analyzer 0 % (0-5); Neutrophil # 3.85 X10^3/uL (2.7-7.7); Platelet Count 156 K/mm3 (150-450); RBC Distribution Width CV 13.4 % (11.6-14.6); RBC Distribution Width SD 49.8 fl (35.1-43.9); White Blood Count 8.4 K/mm3 (4.4-11.0)
[2023-08-04 17:12] LABS: Anion Gap 6 (5-15); BUN 19 mg/dL (7-18); BUN/Creat Ratio 12.5 RATIO (10-20); Calcium,Total 8.6 mg/dL (8.5-10.1); Chloride 105 mmol/L (98-107); Creatinine, Serum 1.52 mg/dL (0.55-1.02); EST Glomerular Filtration Rate 34 mL/min (>60); Est Glom Filt Rate - Afr Amer 42 mL/min (>60); Glucose 109 mg/dL (74-106); Potassium 3.6 mmol/L (3.5-5.1); Sodium Level 140 mmol/L (136-145); Thyroid Stim Hormone (TSH) 0.34 uIU/mL (0.358-3.74)
== END | disposition home or self-care (01) ==
LOC: RAD 14:46
PROVIDERS: Referring Provider Nurse Practitioner Gerontology; Visit Provider Nurse Practitioner Gerontology
DX: R42 Dizziness and giddiness (principal); I48.0 Paroxysmal atrial fibrillation
CPT/HCPCS: 36415; 71046; 80048; 84443; 85025

== ENCOUNTER → 2023-08-17 | Outpatient (CLI) | payer MEDICARE, SELFPAY | END | disposition home or self-care (01) | LOC: CVS 11:42 | PROVIDERS: Referring Provider Nurse Practitioner Gerontology; Visit Provider Nurse Practitioner Gerontology | DX: R42 Dizziness and giddiness (principal); I48.0 Paroxysmal atrial fibrillation | CPT/HCPCS: 93225; 93226 ==

== ENCOUNTER → 2023-08-19 | Outpatient (CLI) | payer MEDICARE, SELFPAY ==
--- NOTE | 2023-08-19 13:50 | CDU_ITS ---
Reason For Study: Dizziness Rt. Velocities/BP Lt. Velocities/BP Prox CCA 47.5/13.5 cm/sec. Prox CCA 64.2/15.1 cm/sec. Mid CCA 57.9/18.2 cm/sec. Mid CCA 55.6/15.1 cm/sec. Dist CCA 55.1/14.5 cm/sec. Dist CCA 55.6/15.1 cm/sec. Prox ICA 42.8/12.6 cm/sec. Prox ICA 50.9/12.4 cm/sec. Mid ICA 54.1/16.3 cm/sec. Mid ICA 46.5/17.9 cm/sec. Dist ICA 82.6/28.6 cm/sec. Dist ICA 94.9/26.7 cm/sec. Rt. ICA/CCA = 1.43. Lt. ICA/CCA = 1.71. Prox ECA 55.1/9.7 cm/sec. Prox ECA 53.2/7.7 cm/sec. Rt. Vert. 43.3/12.6 cm/sec. Lt. Vert. 52/13.5 cm/sec. Right Extracranial There is intimal thickening but no significant atherosclerotic plaque noted in the right common carotid artery. There is heterogeneous, irregular atherosclerotic plaque noted in the right internal carotid artery. There is intimal thickening but no significant atherosclerotic plaque noted in the right external carotid artery. Left Extracranial There is intimal thickening but no significant atherosclerotic plaque noted in the left common carotid artery. There is intimal thickening but no significant atherosclerotic plaque noted in the left internal carotid artery. The left internal carotid artery is very tortuous. There is intimal thickening but no significant atherosclerotic plaque noted in the left external carotid artery. Antegrade flow is noted in the left vertebral artery. Procedure Carotid Duplex [id number]. This is a Carotid Duplex examination using B-mode, color flow and specral Doppler. Exam performed in department. VL/Carotid Duplex Ultrasound Interpretation Summary Mild (<50%) stenosis right extracranial internal carotid. Normal left extracranial internal carotid. Patent and antegrade vertebrals bilaterally. Ordering Physician: Meena Porter Referring Physician: Adrian Madrid Performed By: Lara Hudson RVT
== END | disposition home or self-care (01) ==
PROVIDERS: Referring Provider Nurse Practitioner Gerontology; Visit Provider Nurse Practitioner Gerontology
DX: R42 Dizziness and giddiness (principal)
CPT/HCPCS: 93880